=== PATIENT | male | born 1980 | race Caucasian/White ===

== ENCOUNTER 2025-03-19 05:26 | Inpatient (IN) | payer BC, SELFPAY ==
[2025-03-19] VITALS (31 sets, daily range): BP systolic 92–198; BP diastolic 65–121; BMI 42.0; BMI 41.0
[2025-03-19] MEDS: CARDIZEM 20 MG IV (03:27)
[2025-03-19] MEDS: CARDIZEM 125 IV (03:33)
[2025-03-19 03:41] LABS: Hematocrit 47.8 % (39.0-52.0); Hemoglobin 16.2 g/dL (13.0-18.0); Mean Corp Hgb Conc. 33.9 g/dL (33.0-37.0); Mean Corpuscular Volume 88.2 fL (80.0-94.0); Nucleated Red Blood Cells % 0 % (-); Platelet Count 260 10^3/uL (130-400); Red Cell Dist. Width 13.2 % (11.5-14.5)
[2025-03-19 03:58] LABS: ALT (SGPT) 34 U/L (0-50); AST (SGOT) 35 U/L (17-59); Albumin 4.5 g/dl (3.5-5.0); Alkaline Phosphatase 84 U/L (38-126); Blood Urea Nitrogen 17 mg/dl (9-20); Calcium 9.3 mg/dl (8.4-10.2); Carbon Dioxide 24 mmol/L (22-30); Chloride 103 mmol/L (98-107); Estimated Creatinine Clearance > 125 ml/min; Glucose 108 mg/dl (70-99); Potassium 3.9 mmol/L (3.5-5.1); Sodium 138 mmol/L (135-145); Total Protein 7.6 g/dl (6.3-8.2); eGFR > 60.00
--- NOTE | 2025-03-19 04:14 | ED.GENMED ---
History of Present Illness
General
Chief Complaint: Heart Rate Problem
Time Seen by Provider: 03/19/25 03:17
History of Present Illness
History of Present Illness:
.
Phy Exam
Physical Exam
Physical Exam:
.
Course
Orders/Labs/Results
Orders:
Orders
03/19/25 02:56
EKG [Electrocardiogram (*1)] Urgent
Reason for Study: Tachycardia
03/19/25 02:57
EKG- Treatment ONCE
03/19/25 03:18
Diltiazem HCl [Cardizem] 20 mg IV NOW STA
03/19/25 03:23
Complete Blood Count/With Diff Urgent
Comprehensive Metabolic Panel Urgent
TSH Reflex To Free T4 Urgent
Troponin I Urgent
03/19/25 03:30
Diltiazem 125 mg/125 ml Nss [Cardizem] 125 mg in 125 ml IV PER PROTOCOL
Initial dose in mg/hr, then titrate:: 5
Titrate to keep:: Heart rate 80-100 bpm
Titrate by mg/hr:: 5 mg/hr
Frequency of titrations (minutes):: 15
Maximum dose in mg/hr:: 15
03/19/25 05:12
Admit/Transfer Patient As Directed
Co-Sign Provider:
Level of Care: Inpatient admission
Assign to:: IVU
Physician / Group: Barak
Diagnosis: New A-Fib with RVR
Reason for Hospitalization: New A-Fib with RVR
Expected length of stay greater than two midnights?: Yes
ELOS- Estimated Length of Stay in days: 3
I certify the patient meets the requirements for IP care: Yes
PRN Pain Medication Management As Directed
May give lesser potent ordered pain med per pt: Yes
preference::
Protocol:: Medication orders for pain may be administered in a
manner that supports deferring to patient preference
when the pt is:
- Requesting an ordered lesser potent pain medication.
Least to most potent pain medications are defined
as: acetaminophen < NSAID < tramadol < opioids
(morphine, oxycodone, hydromorphone).
- Requesting a lesser dose of the same medication IF
ORDERED.
- Requesting a less intrusive route of administration
if both routes are prescribed by the provider (PO <
IV).
03/19/25 05:13
Code Status As Directed
Resuscitation Status: Full Code
03/19/25 05:15
Apixaban [Eliquis] 5 mg PO NOW STA
03/19/25 Breakfast
NPO
Allow oral meds: Yes
Allow clear liquids: Sips of Clears
03/19/25 06:27
Acetaminophen [Tylenol] 650 mg PO Q4HPRN PRN
Diltiazem 125 mg/125 ml Nss [Cardizem] 125 mg in 125 ml IV PER PROTOCOL
Currently infusing. Continue current dose and titrate:: Yes
Titrate to keep:: Heart rate 80-100 bpm
Titrate by mg/hr:: 5 mg/hr
Frequency of titrations (minutes):: 15
Maximum dose in mg/hr:: 15
03/19/25 06:27
Echo 2D MMode Doppler [Echo 2D MMode Color/Doppler] Routine
Reason for Study: A-Fib
CARDIOLOGY CONSULT Routine
Consulting Provider: Gale Guerrero
Was physician already notified: No
Reason for consult: New A-Fib with RVR
Consult Notification Routine
Specialty to Notify: Cardiology
Date consulting provider notified: 03/19/25
Time consulting provider notified: 06:55
Notified:: Provider
Activity As Directed
Activity Level: Bedrest
EKG with chest pain [ECG as needed] As Directed
ECG as needed for:: Chest Pain
I/O [Intake/ Output] As Directed
Frequency: Per unit guidelines
Vital Signs As Directed
Frequency: Per unit guidelines
Weight As Directed
Frequency: Daily
Oxygen Therapy [O2 Therapy] [RESP] Routine
Titrate/Wean O2 to maintain O2 sat greater than (%): 94
03/19/25 06:33
Glycohemoglobin (HgbA1c) Routine
Troponin I Q6H
03/19/25 20:00
Apixaban [Eliquis] 5 mg PO BID
Abnormal Lab Results
03/19/25
03:23
MPV 10.5 H fL
(7.4-10.4)
Absolute Monos (auto) 0.8 H 10^3/uL
(0.1-0.6)
Monocytes % 10.1 H %
(1.7-9.3)
Glucose 108 H mg/dl
(70-99)
03/19/25 03:23
03/19/25 03:23
Vital Signs
Initial and Last Documented VS:
Initial Vital Signs
Temp Pulse Resp BP Pulse Ox
98.0 F 190 24 198/120 100
03/19/25 03:06 03/19/25 03:06 03/19/25 03:06 03/19/25 03:06 03/19/25 03:06
Last Documented Vital Signs
Temp Pulse Resp BP Pulse Ox
98.1 F 68 20 135/80 98
03/19/25 11:45 03/19/25 13:00 03/19/25 11:45 03/19/25 11:44 03/19/25 11:45
*Pulse Oximetry
SaO2: 99
Oxygen Mode of Delivery: Room air
Patient hypoxic: no
*Critical Care Note
Total Time (30-74mins, 75-104mins- exclusive of procedures): 30
ED Attending Note
ED Attending Note
Patient seen and examined by attending physician: Yes
I performed the substantive portion of visit, reviewed & personally made and approve the management plan that is documented in note by myself or LETI.: Yes
ED Attending Note:
Seen with PA examined independently 45-year-old male woken from sleep with palpitations and chest pain never had this before here he is in A-fib with a rapid ventricular response, plan rate controlled, discussed immediate DC cardioversion versus
rate control strategy versus admission patient and his who is an RN prefer to be admitted to see cardiology for workup etc.
-
Portions of this chart may have been created with voice recognition software.� Occasional wrong word or��sound alike� substitutions may have occurred due to the inherent limitations of voice recognition software.
Discharge Plan
Departure
Patient Disposition: Admit
Date of Disposition: 03/19/25
Time of Disposition: 04:32
Admit to: Telemetry
Presentation/result/management discussed w/ accepting MD/DO: Hospitalist
Condition: Fair
Covid-19: Not Applicable
Discharge Problem:
Atrial fibrillation with rapid ventricular response
Interventions
Interventions:
*General Assessment Last Done: 03/19/25 03:25
*Neglect/Abuse Screening Last Done: 03/19/25 08:18
*ED COVID-19 Vaccine History Last Done: 03/19/25 07:40
*ED Influenza Vaccine History Last Done: 03/19/25 08:18
[facility] Fall Risk Assessment Tool Last Done: 03/19/25 02:54
*Risk Screen - Suicide (C-SSRS) Last Done: 03/19/25 03:06
*Nursing Disposition Last Done: 03/19/25 08:18
ED- Cardiac Assessment Last Done: 03/19/25 04:30
ED- Pulmonary Assessment Last Done: 03/19/25 04:30
Discharge Date and Time
Discharge Date/Time: 03/19/25 08:18
[2025-03-19 04:16] LABS: Troponin I 0.013 ng/ml
--- NOTE | 2025-03-19 05:15 | HPS.HSE ---
Family Physician
-
Family Physician:
Chief Complaint
-
Palpitations
History of Present Illness
Patient is a 45y M with PMH significant for obesity and newly diagnosed LASHAWN not yet on PAP therapy who presents to ED complaining of palpitations that woke him from sleep this evening. Patient states that he felt well last PM when he went to
bed. He woke around 2 AM with racing heartbeat and some SOB. He checked his pulse on a [employer] device and it noted possible A-Fib. He woke his who is a nurse and they presented to the ED for evaluation.
Patient reports some brief L sided chest discomfort that occurred en route to the ED. No chest pain at present. He denies any associated lightheadedness, nausea, etc.
Patient denies any prior h/o similar symptoms.
Medical History
Past Medical History
Past Medical History: Reports Other
Additional Past Medical History:
LASHAWN
Obesity
Past Surgical History: Reports None
Social History
Tobacco: Non-smoker
Alcohol: Occasional
Drug: None
Personal:
Living: With Family
Family History
Family History: Other (Father: CAD)
Allergies / Home Medications
Allergies reflects when Allergies were last updated in [employer]
Home Medications with original date entered in [employer]
Allergy/Medication List:
Allergies
Allergy/AdvReac Type Severity Reaction Status Date / Time
No Known Allergies Allergy Unverified 03/19/25 02:58
Home Medications
No Meds [No Current Medications] 03/19/25
Review of Systems
-
History Source: Patient
A 12 point ROS was completed and negative except as noted: Yes
Constitutional: Denies Fever or Chills
Respiratory: Reports Trouble Breathing; Denies Cough
Cardiac: Reports Chest Pain and Palpitations; Denies Diaphoresis or Syncope
Abdomen/GI: Reports Diarrhea; Denies Abdominal Pain, Nausea or Vomiting
: Denies Dysuria, Frequency or Flank Pain
Musculoskeletal: Denies Joint Pain or Edema
Neurological: Denies Dizzy or Headache
Psych: Denies Depression or Anxiety
Physical Exam
Vital Signs
Vital Signs
Temp Pulse Resp BP Pulse Ox
98.0 F 169 18 127/97 97
03/19/25 03:06 03/19/25 04:30 03/19/25 04:30 03/19/25 04:30 03/19/25 04:27
Physical Exam
General: Other (45y M in no acute distress.)
HEENT: Moist mucous membranes, PERRLA and Other (Thick neck.)
Respiratory: Clear; No Wheezes, Rales or Rhonchi
Cardiac: S1/S2, Irregular Rhythm and Tachycardia; No Murmur
GI: Soft, Non Tender, Non Distended and Normal Bowel Sounds
Musculoskeletal: No Clubbing, No Cyanosis and No Edema
Neuro: AO x 3
Laboratory Results
-
03/19/25 03:23
03/19/25 03:23
Laboratory Results
Total Bilirubin 0.3 mg/dl (0.2-1.3) 03/19/25 03:23
AST 35 U/L (17-59) 03/19/25 03:23
ALT 34 U/L (0-50) 03/19/25 03:23
Alkaline Phosphatase 84 U/L (38-126) 03/19/25 03:23
Troponin I 0.013 ng/ml 03/19/25 03:23
Impression/Plan
-
A/P: Patient is a 45y M with PMH significant for newly diagnosed LASHAWN who presents to ED complaining of palpitations that woke him from sleep.
New Onset Atrial Fibrillation with Rapid Ventricular Response
- Admit for further evaluation and treatment.
- DCCV for new onset A-Fib discussed in the ED by patient / family declined and wish to have Cardiology evaluation.
- Continue IV diltiazem for now and titrate if able.
- Begin Eliquis - first dose now.
- Check Echo.
- Cardiology evaluation for additional recommendations - likely cardioversion if amenable given [id number] rates, new onset, etc.
- Follow for any new / worsening symptoms, etc.
Elevated BP
- Coincident with rapid A-Fib. Improved on IV Cardizem.
- Follow for changes with rate control drugs +/- cardioversion.
- Consider antihypertensive therapy if needed.
LASHAWN
- New / recent diagnosis and in the process of arranging PAP therapy.
- May well have contributed to development of A-Fib.
- Follow-up as planned for initiation of PAP therapy as an outpatient.
Obesity due to excess calories
- Affects all aspects of care.
- Encourage healthy diet and increased exercise with goal of weight loss.
DVT Prophylaxis: Eliquis
Code Status: Full
[2025-03-19] MEDS: ELIQUIS 5 MG PO (06:32)
[2025-03-19 07:18] LABS: Troponin I 0.023 ng/ml
--- NOTE | 2025-03-19 08:57 | W.PN.HOSP.TC ---
Addendum entered and electronically signed by Araceli Ocasio MD 03/19/25 12:37:
Also CONCHA VASC 1 (HTN), hence no need to continue OAC
Addendum entered and electronically signed by Araceli Ocasio MD 03/19/25 12:34:
d/w Card Dr Mcgee.
Per Card, echo is normal, OK for discharge with Cardizem 120 mg daily and follow outpt.
Original Note:
Today's Communication/Plan
-
see A/P
Assessment / Plan
Assessment / Plan
HPI: 45 yo M with PMH significant for obesity and newly diagnosed LASHAWN not yet on PAP; who presented to ED complaining of palpitations that woke him from sleep. Patient stated that he felt well in the evening when he went to bed. He woke around 2
AM with racing heartbeat and some SOB. He checked his pulse on a [employer] device and it noted possible A-Fib. He woke his who is a nurse and they presented to the ED for evaluation.
Patient reports some brief L sided chest discomfort that occurred en route to the ED. No chest pain since. He denies any associated lightheadedness, nausea, etc.
Patient denies any prior h/o similar symptoms.
A/P:
# New Onset Atrial Fibrillation with Rapid Ventricular Response, resolved
Converted to NSR with Cardizem drip. Continue IV diltiazem for now.
Started Eliquis.
Check Echo.
Cardiology evaluation for additional recommendations
Noted TSH WNL at 3.64
# Elevated BP, resolved
Improved on IV Cardizem.
Follow for changes with rate control drugs +/- cardioversion.
Consider antihypertensive therapy if needed.
# LASHAWN, New / recent diagnosis and in the process of arranging PAP therapy.
May well have contributed to development of A-Fib.
Follow-up as planned for initiation of PAP therapy as an outpatient.
# Morbid Obesity due to excess calories, BMI 41
Affects all aspects of care.
Encourage healthy diet and increased exercise with goal of weight loss.
DVT Prophylaxis: Eliquis
Code Status: Full
Anticipated Discharge: 24 - 48 hours
Subjective/Interval History
-
Date of Service: March 19, 2025
Objective Data
-
Labs:
Laboratory Results
03/19/25
03:23
WBC 7.6
Hgb 16.2
Hct 47.8
Plt Count 260
Sodium 138
Potassium 3.9
Chloride 103
Carbon Dioxide 24
BUN 17
Creatinine 0.7
Glucose 108 H
Calcium 9.3
Total Bilirubin 0.3
AST 35
ALT 34
Alkaline Phosphatase 84
Vital Signs:
Vital Signs
Temp Pulse Resp BP Pulse Ox
36.7 C 81 20 119/74 98
03/19/25 08:11 03/19/25 08:15 03/19/25 08:11 03/19/25 08:11 03/19/25 08:11
Review of Systems
-
History Source: Patient
All other systems: Reviewed and negative
Respiratory: Denies Trouble Breathing
Cardiac: Denies Chest Pain or Palpitations
Physical Exam
-
General: Well Developed, Well Nourished, No Apparent Distress, Comfortable, Conversant and Morbidly Obese; Negative Respiratory Distress
HEENT: Normocephalic, Atraumatic, Nose Appears Normal and Ears Appear Normal; Negative Oxygen
Respiratory: Clear to Auscultation and Non Labored Respirations; Negative Accessory Resp Muscle Use
Cardiac: Regular Rhythm and S1/S2
GI: Soft, Nontender, Nondistended and Normal Bowel Sounds
Skin: Warm and Dry
Neuro: Awake, Alert, Oriented and AO x 3
Psych: Calm and Intact Judgement/Insight
Data Reviewed
-
Labs: Labs Reviewed by me
[2025-03-19 09:18] LABS: Glycohemoglobin (HgbA1c) 5.9 % (4.0-5.9)
--- NOTE | 2025-03-19 11:36 | CM ---
Spoke with patient in room. Patient previously independent at baseline, lives with his in a 1 story home, 2 steps to enter. Denies current DME's, although newly diagnosed with LASHAWN and in process of getting a CPAP. Denies any discharge needs at
this time. Plan to DC home with no needs when medically cleared.
--- NOTE | 2025-03-19 11:39 | CM ---
Priced Eliquis 5mg PO BID through patient's [facility] pharmacy, 30-day supply $35. Discussed with patient/ and provided free 30-day supply card as well as $10 copay card, placed in chart.
--- NOTE | 2025-03-19 12:31 | CON.CAR ---
Consultation
Consultation Request
Date/Time Consultation Requested: 03/19/2025
Date/Time Consultation Performed: 03/19/2025
Requesting Provider: Dr. Ocasio
Performing Provider: Dr. Mcgee
Reason for Consultation: Atrial fibrillation
Medical History
-
Chief Complaint: Palpitations
History of Present Illness:
45-year-old male with hypercholesterolemia, obesity, obstructive sleep apnea (CPAP pending), and family history of coronary artery disease (father) admitted with palpitations; found to have new onset atrial fibrillation with RVR. The patient also
had left-sided chest pain at 1 point and route to the ER. The patient was found to be hypertensive with a blood pressure of 198/120 mmHg. He denies chest pain currently or shortness of breath. The patient was started on a Cardizem drip in the ER
and spontaneously converted back to sinus rhythm overnight. He states that he was recently diagnosed with LASHAWN, and is in the process of getting his CPAP. The patient's is at bedside.
Past Medical History
Past Medical History: Hypercholesterolemia and Other (LASHAWN)
Past Surgical History: None
Social History
Tobacco: Non-Smoker
Alcohol: Occasional
Drug: None
Personal:
Living: With Family
Employment: Employed
Family History
Family History: CAD (father)
Allergies / Home Medications
Allergy/AdvReac Type Severity Reaction Status Date / Time
No Known Allergies Allergy Unverified 03/19/25 02:58
�Medication �Instructions �Recorded �Confirmed �Type
No Meds [No Current Medications] 03/19/25 03/19/25 History
Review of Systems
-
History Source: Patient
All other systems: Negative unless noted
Physical Exam
Vital Signs
Temp Pulse Resp BP Pulse Ox
98.1 F 69 20 119/74 98
03/19/25 11:45 03/19/25 10:15 03/19/25 11:45 03/19/25 08:11 03/19/25 11:45
Lab Results
03/19/25 03:23
03/19/25 03:23
Troponin I Cancelled 03/19/25 18:27
Physical Exam
General: No Apparent Distress and Comfortable
HEENT: Normocephalic
Respiratory: Clear
Cardiac: S1/S2 and Regular Rhythm
Breast: N/A
GI: Soft
Rectal: Deferred by Provider
Musculoskeletal: No Edema
Skin: Warm and Dry
Neuro: AO x 3
Psych: Calm
Impression / Plan
-
45-year-old male with hypercholesterolemia, obesity, obstructive sleep apnea (CPAP pending), and family history of coronary artery disease (father) admitted with palpitations; found to have new onset atrial fibrillation with RVR. The patient also
had left-sided chest pain at 1 point and route to the ER. The patient was found to be hypertensive with a blood pressure of 198/120 mmHg. He denies chest pain currently or shortness of breath. The patient was started on a Cardizem drip in the ER
and spontaneously converted back to sinus rhythm overnight. He states that he was recently diagnosed with LASHAWN, and is in the process of getting his CPAP.
PAF:
- The patient is now back in sinus rhythm after converting on Cardizem drip.
- Patient's echocardiogram today was unremarkable; normal LVEF and no significant valvulopathy.
- TSH is normal.
- Can discharge to home on Cardizem CD 120 mg daily.
Chest pain:
- No evidence of ACS.
- Outpatient stress test.
Hypertension:
- Will place on Cardizem CD 120 mg daily.
Hypercholesterolemia:
- Will assess as outpatient.
Obesity/LASHAWN:
- Counseled on the importance of compliance with CPAP
- Also counseled on the importance of weight loss, regular exercise, and improved lifestyle/dietary habits.
Data Reviewed
-
EKG: Report Reviewed by me (Normal sinus rhythm at 76 bpm.)
Medical Tests (Nuc Med, Echo etc): Image Personally Visualized and interpreted (Echo: Normal LVEF; no significant valvular disease.)
Labs: Labs Reviewed by me
[2025-03-19] MEDS: CARDIZEM CD 120 MG PO (13:06)
--- NOTE | 2025-03-19 13:20 | PTCARENOTE ---
~1385-7290: Patient arrived from ED via stretcher. Pt Aox4, NSR 70s on cardizem @ 15. Cardizem titrated off, cardiology made aware with verbal instructions to keep cardizem gtt off. SBP 110s, RA satting 98%. Pt independent in room. Pt oriented to
room and call gutierrez system. All needs met at this time, call gutierrez within reach.
~ [id number]: Patient taken to ECHO in stable condition via strether.
~8504-6333: Pt arrived back from ECHO. EKG obtained per order. at bedside. VSS. All needs met at this time, call gutierrez within reach.
~[id number]: patient independent in room. PO diltiazem given per order. DC orders in and reviewed with patient and . All questions answered to the best of my ability and patient verbalized understanding. VSS. Patient discharged in stable
condition home.
--- NOTE | 2025-03-19 14:08 | W.DCSUMMARY ---
Discharge Summary
Discharge Data
Date of Admission: 03/19/25
Date of Discharge: 03/19/25
Total time spent discharging patient (in min): 40
-
Pending Results: No
Hospital Course
Principal Diagnosis:
New Onset Atrial Fibrillation with Rapid Ventricular Response, resolved and spontaneously converted to normal sinus rhythm following Cardizem drip
Chronic Diagnoses:�
Elevated BP, resolved with Cardizem
LASHAWN, New / recent diagnosis, and in the process of arranging PAP therapy.
Morbid Obesity due to excess calories, BMI 41
Consultations:�
Cardiology
Procedures:�
None
Clinical course:�
This is a 45 year old male with PMH as stated above, who presented with palpitations that woke him up from sleep.
Problem 1:
New Onset Atrial Fibrillation with Rapid Ventricular Response, resolved and spontaneously converted to normal sinus rhythm following Cardizem drip.
Given CHADVASC only at 1 (HTN), there is no indication to start anticoagulation per cardiology.
His echo was within normal limit, and TSH within normal limit at 3.64.
Patient was cleared for discharge per cardiology
As for the rest of his medical problems, they were stable during his hospital stay.
Discharge Plan
-
Patient Disposition: Home (Routine Discharge)
Discharge Diagnosis/Procedures: New Onset Atrial Fibrillation with Rapid Ventricular Response, spontaneously converted to normal sinus rhythm
Condition: Good
Diet: As tolerated, Low Cholesterol, Low Fiber and Low Sodium
Activity: As tolerated
Driving Restrictions: As prior to admission
Activity Restrictions/Additional Instructions:
Follow up with cardiology outpatient
Referrals:
Gregoria De Souza CRNP [Family Provider] - in less than [address] MD [Active, Cardiology] - 04/06/25 8:00 am
Referral Note: [facility] [place].
Prescriptions:
New
diltiazem HCl 120 mg Capsule,Extended Release 24hr
120 mg PO DAILY Qty: 30 0RF
Discharge Orders:
Discharge Patient (As Directed); Ordered 03/19/25
Ordered By: Araceli Ocasio
Care Plan Goals
Care Plan Goals:
Problem: Readiness for enhanced knowledge related to diagnosis and treatment plan
Goal: Understand your diagnosis and treatment plan needs, including medications if applicable.
Instructions: Know your diagnosis, underlying causes and treatment plan options, including medications if applicable. Consult with your health care team to learn about your diagnosis and treatment plan, including medications if applicable.
Discharge Date and Time
Discharge Date/Time: 03/19/25 13:20
Print Language: AZERI
== END 2025-03-19 13:20 | disposition home or self-care (01) | DRG 309 ==
LOC: IVU 05:26
PROVIDERS: Physician Assistant; ADMITTING PHYSICIAN Hospitalist; ATTENDING PHYSICIAN Internal Medicine; CONSULT PHYSICIAN Internal Medicine Cardiovascular Disease; EMERGENCY PHYSICIAN Emergency Medicine; FAMILY PHYSICIAN Nurse Practitioner Family
DX: I48.0 Paroxysmal atrial fibrillation (principal); Z68.41 Body mass index [BMI] 40.0-44.9, adult; E66.01 Morbid (severe) obesity due to excess calories; G47.33 Obstructive sleep apnea (adult) (pediatric); E78.00 Pure hypercholesterolemia, unspecified; I10 Essential (primary) hypertension
CPT/HCPCS: 80053; 83036; 84443; 84484; 85025; 93005; 93306; 96365; 99291